=== PATIENT | male | born 1995 | race American Indian/Alaskan Native ===

== ENCOUNTER 2021-08-23 13:20 | Emergency (ER) | payer SELFPAY ==
[2021-08-23 13:31] VITALS: BP 118/85
--- NOTE | 2021-08-23 13:59 | Emergency Department Report ---
Chief Complaint: Rectal Pain Stated Complaint: BLEEDING FROM RECTUM Time Seen by Provider: 08/23/21 13:46 - HPI History of Present Illness: 26-year-old -[place] male presents to the emergency room stating that he has condyloma of the anus. 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 Patient reports that at times they will bleed at time. Patient comes in wanting them to be removed. - Exam Vital Signs: Vital Signs 08/23/21 13:30 Temperature 98.9 F Pulse Rate 98 H Respiratory 18 Rate Blood Pressure 118/85 O2 Sat by Pulse 96 Oximetry Physical Exam: Patient is alert and oriented x3 no acute distress nontoxic in appearance Patient has normal respiratory Heart rate stable Ambulatory without difficulties MSE screening note: Focused history and physical exam performed. Due to findings the following was ordered: 26-year-old -[place] male presents to the emergency room stating that he has condyloma of the anus. 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 Patient reports that at times they will bleed at time. Patient comes in wanting them to be removed. Patient refused to be examined. Discussed the patient can follow-up with a street light cleaner or primary care provider. ED Disposition for MSE Disposition: 01 HOME / SELF CARE / HOMELESS Is pt being admited?: No Does the pt Need Aspirin: No Condition: Stable
== END 2021-08-23 13:50 | disposition left against medical advice (07) ==
LOC: ED 13:20
DX: K62.5 Hemorrhage of anus and rectum (principal)
CPT/HCPCS: 99281

== ENCOUNTER 2022-06-02 16:19 | Emergency (ER) | payer SELFPAY ==
[2022-06-02] MEDS ORDERED: IBUPROFEN 800 MG TAB PO ONE (21:48)
[2022-06-03] MEDS ORDERED: KETOROLAC 30 MG/1 ML INJ IV ONE (01:29)
[2022-06-03] MEDS ORDERED: dexAMETHasone 20 MG/5 ML VIAL IV ONE (01:29)
[2022-06-03] MEDS ORDERED: SODIUM CHLORIDE 0.9% 1000 ML 1,000 ML IV ONE (01:29)
--- NOTE | 2022-06-03 01:42 | Emergency Department Report ---
ED General Adult HPI - General Chief complaint: Sore Throat Stated complaint: MONKEY POX/OUTBREAK/HIV+ Time Seen by Provider: 06/03/22 01:12 Source: patient Mode of arrival: Ambulatory Limitations: No Limitations - History of Present Illness Initial comments: Patient a 27-year-old male with history of HIV positive. Patient presents for sore throat swollen tonsils with exudate x4 days. Patient complains of 5/10 pain with swallowing. There is no stridor no wheezing no shortness of breath. There is no nausea vomiting patient is tolerating p.o. intake. Symptoms are exacerbated by swallowing. Symptoms are relieved by nothing tried. Patient is followed by infectious disease current medication regimen as [facility] patient states compliant with same. Patient denies other symptoms. There is no ear pain. No sinus pain. No neck pain. No shortness of breath or cough. Severity scale (0 -10): 4 - Related Data Previous Rx's Medication Instructions Recorded Last Taken Type Clindamycin [Clindamycin CAP] 300 mg PO Q6H 7 Days #28 cap 06/03/22 Unknown Rx Ibuprofen [Motrin 800 MG tab] 800 mg PO Q8HR PRN #30 tablet 06/03/22 Unknown Rx dexAMETHasone [Decadron] 4 mg PO BID 5 Days #10 tablet 06/03/22 Unknown Rx Allergies Allergy/AdvReac Type Severity Reaction Status Date / Time No Known Allergies Allergy Verified 08/23/21 13:27 ED Review of Systems ROS: Stated complaint: MONKEY POX/OUTBREAK/HIV+ Other details as noted in HPI Constitutional: chills, fever, malaise Eyes: denies: eye pain, eye discharge, vision change ENT: throat pain. denies: ear pain, dental pain, congestion Respiratory: denies: cough, shortness of breath, wheezing Cardiovascular: denies: chest pain, palpitations Endocrine: no symptoms reported Gastrointestinal: denies: abdominal pain, nausea, diarrhea Genitourinary: denies: urgency, dysuria Musculoskeletal: denies: back pain, joint swelling, arthralgia Skin: rash (forehead bilateral forearm). denies: lesions Neurological: denies: headache, weakness, paresthesias, vertigo Psychiatric: denies: anxiety, depression Hematological/Lymphatic: denies: easy bleeding, easy bruising ED Past Medical Hx - Medications Home Medications: Home Medications Medication Instructions Recorded Confirmed Last Taken Type Clindamycin [Clindamycin CAP] 300 mg PO Q6H 7 Days #28 cap 06/03/22 Unknown Rx Ibuprofen [Motrin 800 MG tab] 800 mg PO Q8HR PRN #30 tablet 06/03/22 Unknown Rx dexAMETHasone [Decadron] 4 mg PO BID 5 Days #10 tablet 06/03/22 Unknown Rx ED Physical Exam - General Limitations: No Limitations General appearance: alert - Head Head exam: Present: normocephalic, normal inspection - Eye Eye exam: Present: PERRL, EOMI Pupils: Present: normal accommodation - ENT ENT exam: Present: mucous membranes moist, TM's normal bilaterally, normal external ear exam - Expanded ENT Exam Expanded Throat exam: Positive: tonsillar erythema, tonsillomegaly, tonsillar exudate, other (Uvula remains midline airways patent no stridor no wheezing. No visualized peritonsillar abscess). Negative: R peritonsillar mass, L peritonsillar mass - Neck Neck exam: Present: normal inspection, full ROM, lymphadenopathy. Absent: tenderness, meningismus, thyromegaly - Respiratory Respiratory exam: Present: normal lung sounds bilaterally. Absent: respiratory distress, wheezes, stridor, chest wall tenderness - Cardiovascular Cardiovascular Exam: Present: regular rate, normal rhythm, normal heart sounds. Absent: systolic murmur, diastolic murmur, rubs, gallop - GI/Abdominal GI/Abdominal exam: Present: soft, normal bowel sounds. Absent: distended, tenderness - Rectal Rectal exam: Present: deferred - Extremities Exam Extremities exam: Present: normal inspection, full ROM, normal capillary refill - Back Exam Back exam: Present: normal inspection, full ROM. Absent: CVA tenderness (R), CVA tenderness (L) - Neurological Exam Neurological exam: Present: alert, oriented X3, CN II-XII intact, normal gait - Expanded Neurological Exam Expanded Patient oriented to: Present: person, place, time Speech: Present: fluid speech Cranial nerves: EOM's Intact: Normal, Gag Reflex: Normal, Tongue Deviation: Normal Motor strength exam: RUE: 5, LUE: 5, RLE: 5, LLE: 5 Best Eye Response (Selene): (4) open spontaneously Best Motor Response (Sargent): (6) obeys commands Best Verbal Response (Sargent): (5) oriented Selene Total: 15 - Psychiatric Psychiatric exam: Present: normal affect, normal mood - Skin Skin exam: Present: warm, dry, intact, normal color. Absent: rash ED Course Vital Signs 06/02/22 06/02/22 06/03/22 18:05 21:45 02:22 Temperature 99.3 F 100.3 F H Pulse Rate 88 89 Respiratory 18 18 16 Rate Blood Pressure 140/88 Blood Pressure 139/81 [Right] O2 Sat by Pulse 96 98 Oximetry ED Medical Decision Making - Medical Decision Making Symptoms improved after medications given in ED, airway is patent, lung sounds are clear no stridor no wheezing. Plan DC to home with prescriptions, follow-up with your doctor in 2 to 3 days. Return to emergency department should symptoms worsen. Patient verbalized agreement and understanding with discharge plan. Patient DC'd home in stable condition at this time. Critical care attestation.: If time is entered above; I have spent that time in minutes in the direct care of this critically ill patient, excluding procedure time. ED Disposition Clinical Impression: Tonsillitis Disposition: 01 HOME / SELF CARE / HOMELESS Is pt being admited?: No Does the pt Need Aspirin: No Condition: Stable Instructions: Tonsillitis, [id number] Additional Instructions: Take medication as prescribed, follow-up with your doctor in 2 to 3 days. Return to emergency department should symptoms worsen. Prescriptions: Clindamycin [Clindamycin CAP] 300 mg PO Q6H 7 Days #28 cap dexAMETHasone [Decadron] 4 mg PO BID 5 Days #10 tablet Ibuprofen [Motrin 800 MG tab] 800 mg PO Q8HR PRN #30 tablet PRN Reason: pain fever Referrals: KEY REYES MD [Referring] - 3-5 Days Forms: Work/School Release Form(ED) Time of Disposition: 03:18
[2022-06-03 04:19] VITALS: BP 142/92
== END 2022-06-03 04:19 | disposition home or self-care (01) ==
LOC: ED 16:19
DX: J03.90 Acute tonsillitis, unspecified (principal)
CPT/HCPCS: 96365; 96375; 99282; J1100; J1885; J7030; J7502